=== PATIENT | female | born 1985 | race Hispanic/Latino ===

== ENCOUNTER 2022-07-02 09:40 | Emergency (ER) | payer SELFPAY ==
[2022-07-02] MEDS ORDERED: KETOROLAC 30 MG/ML INJ ONE (10:03)
[2022-07-02 10:21] LABS: Absolute Lymphocytes (CBC) 0.5 K/uL (0.7-4.9); Hematocrit 35.8 % (36.0-45.0); MCV 85.9 fL (80-100); MPV 8.4 fL (7.6-11.3); RBC Red Blood Cell Count 4.17 M/uL (3.86-4.86)
--- NOTE | 2022-07-02 10:23 | RAD REPORT ---
EXAM DESCRIPTION: CT - Head Brain Wo Cont - 07/02/2022 10:18 am CLINICAL HISTORY: HEADACHE Headache, drowsiness COMPARISON: No comparisons TECHNIQUE: All CT scans are performed using dose optimization technique as appropriate and may inclu de automated exposure control or mA/KV adjustment according to patient size. FINDINGS: No intracranial hemorrhage, hydrocephalus or extra-axial fluid collection.No areas of brai n edema or evidence of midline shift. The paranasal sinuses and mastoids are clear. The calvarium is intact. IMPRESSION: No acute intracranial abnormality.
--- NOTE | 2022-07-02 10:36 | RAD REPORT ---
EXAM DESCRIPTION: RAD - Chest Single View - 07/02/2022 10:23 am CLINICAL HISTORY: CHEST PAIN Chest pain. COMPARISON: No comparisons FINDINGS: Portable technique limits examination quality. The lungs are grossly clear. The heart is normal in size. No displaced fractures. IMPRESSION: No acute intrathoracic process suspected.
[2022-07-02 10:39] LABS: Potassium 3.6 mmol/L (3.5-5.1); Troponin High Sensitivity 3.1 pg/mL (<58.9)
--- NOTE | 2022-07-02 12:58 | RAD REPORT ---
EXAM DESCRIPTION: CT - Chest For Pe Angio - 07/02/2022 12:12 pm CLINICAL HISTORY: Chest pain. CHEST PAIN COMPARISON: No comparisons TECHNIQUE: CT angiogram of the pulmonary arteries was performed with MIP. All CT scans are performed using dose optimization technique as appropriate and may include automated exposure control or mA/KV adjustment according to patient size. FINDINGS: No evidence of pulmonary thromboembolism. No acute aortic finding demonstrated. The lungs are clear. No significant pericardial or pleural fluid. No concerning bony finding. IMPRESSION: No evidence of pulmonary thromboembolism. No acute lung findings.
[2022-07-02] MEDS ORDERED: HYDROCODONE/APAP 5/325 MG TAB ONE (13:15)
--- NOTE | 2022-07-02 13:31 | ER ---
Nurse's Notes [facility] Name: Layne Winslow Age: 37 yrs Sex: Female : 1985 Arrival Date: 07/02/2022 Time: 09:43 Bed 18 Private MD: None, None Diagnosis: Headache;Pain in thoracic spine Presentation: 07/02 09:46 Chief complaint: Patient's son or daughter states: headache woke her up in the middle iw of night, started in back of head and now its moved to the front, and her upper back started hurting last night also, when she stretches she feels like someone is hitting her back. Coronavirus screen: At this time, the client does not indicate any symptoms associated with coronavirus-19. Ebola Screen: Patient negative for fever greater than or equal to 101.5 degrees Fahrenheit, and additional compatible Ebola Virus Disease symptoms Patient denies exposure to infectious person. Patient denies travel to an Ebola-affected area in the 21 days before illness onset. No symptoms or risks identified at this time. Initial Sepsis Screen: Does the patient meet any 2 criteria? No. Patient's initial sepsis screen is negative. Does the patient have a suspected source of infection? No. Patient's initial sepsis screen is negative. Risk Assessment: Do you want to hurt yourself or someone else? Patient reports no desire to harm self or others. Onset of symptoms was July 02, 2022. 09:46 Method Of Arrival: Ambulatory iw 09:46 Acuity: HIMA 3 iw Triage Assessment: 10:14 Headache History: The patient has had previous headaches. General: Appears ap3 uncomfortable, Behavior is calm, cooperative, appropriate for age. Pain: Complains of pain in occipital area Pain radiates to left parietal area, right parietal area, left frontal area, right frontal area and right side of forehead Pain Pain began gradually, over night Is continuous, Also complains of nausea. Neuro: Level of Consciousness is awake, alert, obeys commands, Oriented to person, place, time, situation, Gait is steady, Speech is normal, Reports headache occipital area. Cardiovascular: Patient's skin is warm and dry. Respiratory: Airway is patent Respiratory effort is even, unlabored, Respiratory pattern is regular, symmetrical. 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 - Social history:: Smoking status: Patient denies any tobacco usage or history of. Screenin:11 [facility] ED Fall Risk Assessment (Adult) History of falling in the last 3 months, ap3 including since admission No falls in past 3 months (0 pts). Abuse screen: Denies threats or abuse. Nutritional screening: No deficits noted. Tuberculosis screening: No symptoms or risk factors identified. Assessment: 12:50 Reassessment: Patient and/or family updated on plan of care and expected duration. Pain ap3 level reassessed. Patient is alert, oriented x 3, equal unlabored respirations, skin warm/dry/pink. General:. Vital Signs: 09:46 BP 122 / 81; Pulse 110; Resp 16; Temp 99.7; Pulse Ox 98% on R/A; Weight 68.04 kg; iw Height 5 ft. 4 in. (162.56 cm); Pain 7/10; 10:45 BP 108 / 68; Pulse 102; Pulse Ox 99% ; ap3 11:54 Pulse 79; Pulse Ox 97% on R/A; ap3 11:54 BP 108 / 70; ap3 09:46 Body Mass Index 25.75 (68.04 kg, 162.56 cm) iw NIH Stroke Scale Scores: 09:50 NIHSS Score: 0 [facility] ED Course: 09:43 Patient arrived in ED. as 09:43 None, None is Private Physician. as 09:45 [facility] jh7 09:45 Sandor Lomas MD is Attending Physician. jh7 09:49 Triage completed. iw 09:50 Arm band placed on. iw 09:54 Kandice Macario, ANKUR is Primary Nurse. ap3 10:11 Inserted saline lock: 20 gauge in right antecubital area, using aseptic technique. ap3 Blood collected. 10:15 Patient has correct armband on for positive identification. Bed in low position. Call ap3 light in reach. Side rails up X 1. Adult w/ patient. Pulse ox on. NIBP on. Door closed. Noise minimized. 13:49 No provider procedures requiring assistance completed. IV discontinued, intact, ap3 bleeding controlled, No redness/swelling at site. Pressure dressing applied. Administered Medications: 10:11 Drug: Ketorolac 30 mg Route: IVP; Site: right antecubital; ap3 13:50 Follow up: Response: No adverse reaction; Pain is decreased ap3 13:17 Drug: HYDROcodone-acetaminophen 5 mg-325 mg 1 tabs Route: PO; ap3 13:50 Follow up: Response: No adverse reaction; Pain is decreased ap3 Medication: 10:16 VIS not applicable for this client. ap3 Outcome: 13:31 Discharge ordered by . jh7 13:49 Discharged to home ambulatory, with family. ap3 13:49 Condition: good 13:49 Discharge instructions given to patient, family, Instructed on discharge instructions, follow up and referral plans. medication usage, Demonstrated understanding of instructions, follow-up care, medications, Prescriptions given X 2. 13:54 Patient left the ED. ap3 NIH Stroke Scale - NIH Stroke Score Date: 07/02/2022 Time: 09:50 Total Score = 0 1a. Level of Consciousness (LOC) - 0(Alert) 1b. Level of Consciousness (LOC) (Month \T\ Age) - 0(Both) 1c. LOC Commands (Open \T\ Closes Eyes/Accelerator Technician) - 0(Both) 2. Best Gaze (Lateral Gaze Paresis) - 0(Normal) 3. Visual Field Loss - 0(No visual loss) 4. Facial Palsy - 0(Normal) 5a. Left Arm: Motor (10-second hold) - 0(No drift) 5b. Right Arm: Motor (10-second hold) - 0(No drift) 6a. Left Leg: Motor (5-second hold - always test supine) - 0(No drift) 6b. Right Leg: Motor (5-second hold - always test supine) - 0(No drift) 7. Limb Ataxia (finger/nose \T\ heel/henry - test with eyes open) - 0(Absent) 8. Sensory Loss (pinprick arms/legs/face) - 0(Normal) 9. Best Language: Aphasia (description/naming/reading) - 0(No aphasia) 10. Dysarthria (speech clarity - read or repeat words) - 0(Normal) 11. Extinction and Inattention (visual/tactile/auditory/spatial/personal) - 0(No abnormality) Initials: jh7 Signatures: Ceci Celeste Irene, RN RN iw Prokisch, Amanda, RN RN ap3 Chelsi Sandoval, IAN SOSA jh7
--- NOTE | 2022-07-02 13:31 | EDPHYS ---
Physician Documentation [facility] [place], [place] Name: Layne Winslow Age: 37 yrs Sex: Female : 1985 Arrival Date: 07/02/2022 Time: 09:43 Bed 18 Private MD: None, None ED Physician Sandor Lomas HPI: 07/02 09:50 This 37 yrs old Female presents to ER via Ambulatory with complaints of jh7 Headache, Back Pain. 09:50 The patient complains of pain to the occipital area. The patient describes the headache jh7 as aching, constant. Onset: The symptoms/episode began/occurred last night. Associated signs and symptoms: Pertinent positives: back pain, Pertinent negatives: altered mental status, dizziness, fever, nausea, rash, vomiting, weakness. 09:50 Headache History: Denies prior headaches. 37-year-old female awoke from sleep last jh7 night with an occipital headache and thoracic back pain. Reports no medical problems. States that the back pain radiates to her anterior chest. Also reports occasional shortness of breath for the past month. She is a patient of Dr. Perry.. 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 - Social history:: Smoking status: Patient denies any tobacco usage or history of. ROS: 09:50 Constitutional: Negative for fever, chills, and weight loss, Eyes: Negative for injury, jh7 pain, redness, and discharge, ENT: Negative for injury, pain, and discharge, Neck: Negative for injury, pain, and swelling, Abdomen/GI: Negative for abdominal pain, nausea, vomiting, diarrhea, and constipation, MS/Extremity: Negative for injury and deformity, Skin: Negative for injury, rash, and discoloration. 09:50 Cardiovascular: Positive for chest pain. 09:50 Respiratory: Positive for shortness of breath, on exertion. 09:50 Back: Positive for pain with movement, of the left mid back and right mid back. 09:50 Neuro: Positive for headache, Negative for altered mental status, dizziness, gait disturbance, loss of consciousness, speech changes, syncope, weakness. Exam: 09:50 Neuro: Orientation: is normal, to person, place, time \T\ situation. Mentation: is jh7 normal, Memory: is normal, Cranial nerves: grossly normal, Cerebellar function: is grossly normal, Motor: is normal, Sensation: is normal, Gait: is steady, at a normal pace. 09:50 Constitutional: This is a well developed, well nourished patient who is awake, alert, jh7 and in no acute distress. Head/Face: Normocephalic, atraumatic. Eyes: Pupils equal round and reactive to light, extra-ocular motions intact. Lids and lashes normal. Conjunctiva and sclera are non-icteric and not injected. Cornea within normal limits. Periorbital areas with no swelling, redness, or edema. Neck: Trachea midline, no thyromegaly or masses palpated, and no cervical lymphadenopathy. Supple, full range of motion without nuchal rigidity, or vertebral point tenderness. No Meningismus. Cardiovascular: Regular rate and rhythm with a normal S1 and S2. No gallops, murmurs, or rubs. Normal PMI, no JVD. No pulse deficits. Respiratory: Lungs have equal breath sounds bilaterally, clear to auscultation and percussion. No rales, rhonchi or wheezes noted. No increased work of breathing, no retractions or nasal flaring. Abdomen/GI: Soft, non-tender, with normal bowel sounds. No distension or tympany. No guarding or rebound. No evidence of tenderness throughout. Back: No spinal tenderness. No costovertebral tenderness. Full range of motion. Skin: Warm, dry with normal turgor. Normal color with no rashes, no lesions, and no evidence of cellulitis. MS/ Extremity: Pulses equal, no cyanosis. Neurovascular intact. Full, normal range of motion. Vital Signs: 09:46 BP 122 / 81; Pulse 110; Resp 16; Temp 99.7; Pulse Ox 98% on R/A; Weight 68.04 kg; iw Height 5 ft. 4 in. (162.56 cm); Pain 7/10; 10:45 BP 108 / 68; Pulse 102; Pulse Ox 99% ; ap3 11:54 Pulse 79; Pulse Ox 97% on R/A; ap3 11:54 BP 108 / 70; ap3 09:46 Body Mass Index 25.75 (68.04 kg, 162.56 cm) iw NIH Stroke Scale Scores: 09:50 NIHSS Score: 0 [facility] MDM: 09:45 Patient medically screened. [facility] 13:25 Differential diagnosis: cerebral vascular accident, tension headache, Muscle spasm, [facility] acute AL, pulmonary embolism, aortic dissection. Data reviewed: vital signs, nurses notes, lab test result(s), EKG, radiologic studies, CT scan, plain films. I considered the following discharge prescriptions or medication management in the emergency department Medications were administered in the Emergency Department. See MAR. Historians other than the Patient: Daughter/Son: daughter. Counseling: I had a detailed discussion with the patient and/or guardian regarding: the historical points, exam findings, and any diagnostic results supporting the discharge/admit diagnosis, to return to the emergency department if symptoms worsen or persist or if there are any questions or concerns that arise at home. Response to treatment: the patient's symptoms have markedly improved after treatment. 07/02 09:54 Order name: Basic Metabolic Panel [facility] 07/02 09:54 Order name: CBC with Diff [facility] 07/02 09:54 Order name: D-Dimer [facility] 07/02 09:54 Order name: Troponin HS [facility] 07/02 10:37 Order name: CBC with Automated Diff; Complete Time: 10:44 EDMS 07/02 10:39 Order name: Basic Metabolic Panel; Complete Time: 10:44 EDMS 07/02 09:54 Order name: XRAY Chest (1 view) [facility] 07/02 09:54 Order name: CT Head Brain wo Cont [facility] 07/02 10:23 Order name: CT; Complete Time: 10:34 EDMS 07/02 10:37 Order name: RAD; Complete Time: 10:44 EDMS 07/02 10:39 Order name: Troponin High Sensitivity; Complete Time: 10:44 EDMS 07/02 10:49 Order name: CT Chest For PE Angio [facility] 07/02 10:49 Order name: D-Dimer; Complete Time: 10:49 EDUT 07/02 12:59 Order name: CT; Complete Time: 13:16 EDUT 07/02 09:54 Order name: EKG; Complete Time: 09:54 [facility] 02/13 09:54 Order name: Cardiac monitoring; Complete Time: 10:07 [facility] 07/02 09:54 Order name: EKG - Nurse/Tech; Complete Time: 11:01 [facility] 07/02 09:54 Order name: IV Saline Lock; Complete Time: 10:10 [facility] 07/02 09:54 Order name: Labs collected and sent; Complete Time: 10: [facility] 07/02 09:54 Order name: O2 Per Protocol; Complete Time: 10: [facility] 07/02 09:54 Order name: O2 Sat Monitoring; Complete Time: 10: EC:56 Rate is 95 beats/min. Rhythm is regular. QRS [place] is Normal. ME interval is normal at [facility] 144 msec. QRS interval is normal at 78 msec. QT interval is normal at 336 msec. No Q waves. T waves are Normal. No ST changes noted. Clinical impression: Normal ECG. Administered Medications: 10:11 Drug: Ketorolac 30 mg Route: IVP; Site: right antecubital; ap3 13:50 Follow up: Response: No adverse reaction; Pain is decreased ap3 13:17 Drug: HYDROcodone-acetaminophen 5 mg-325 mg 1 tabs Route: PO; ap3 13:50 Follow up: Response: No adverse reaction; Pain is decreased ap3 Disposition: 18:55 Co-signature as Attending Physician, Sandor Lomas MD I reviewed the patient's care rn provided by the Advanced Practice Provider and agree with the diagnosis and treatment plan. Disposition Summary: 07/02/22 13:31 Discharge Ordered Location: Home [facility] Problem: new [facility] Symptoms: have improved [facility] Condition: Stable [facility] Diagnosis - Headache [facility] - Pain in thoracic spine [facility] Followup: [facility] - With: Private Physician - When: 2 - 3 days - Reason: Recheck today's complaints Discharge Instructions: - Discharge Summary Sheet [facility] - General Headache Without Cause jh - Musculoskeletal Pain [facility] Forms: - Medication Reconciliation Form 7 - Thank You Letter [facility] Prescriptions: - Naprosyn 500 mg Oral Tablet - take 1 tablet by ORAL route 2 times per day take with food; 30 tablet; Refills: [facility] 0, Product Selection Permitted - Zanaflex 4 mg Oral Tablet - take 1 tablet by ORAL route every 8 hours As needed; 20 tablet; Refills: 0, jh7 Product Selection Permitted NIH Stroke Scale - NIH Stroke Score Date: 07/02/2022 Time: 09:50 Total Score = 0 1a. Level of Consciousness (LOC) - 0(Alert) 1b. Level of Consciousness (LOC) (Month \T\ Age) - 0(Both) 1c. LOC Commands (Open \T\ Closes Eyes/Vamp Stitcher) - 0(Both) 2. Best Gaze (Lateral Gaze Paresis) - 0(Normal) 3. Visual Field Loss - 0(No visual loss) 4. Facial Palsy - 0(Normal) 5a. Left Arm: Motor (10-second hold) - 0(No drift) 5b. Right Arm: Motor (10-second hold) - 0(No drift) 6a. Left Leg: Motor (5-second hold - always test supine) - 0(No drift) 6b. Right Leg: Motor (5-second hold - always test supine) - 0(No drift) 7. Limb Ataxia (finger/nose \T\ heel/henry - test with eyes open) - 0(Absent) 8. Sensory Loss (pinprick arms/legs/face) - 0(Normal) 9. Best Language: Aphasia (description/naming/reading) - 0(No aphasia) 10. Dysarthria (speech clarity - read or repeat words) - 0(Normal) 11. Extinction and Inattention (visual/tactile/auditory/spatial/personal) - 0(No abnormality) Initials: [facility] Signatures: Dispatcher [employer] EDSocorro Bernstein, Sandor Briggs RN, MD MD rn Prokisch, Amanda, RN RN ap3 Chelsi Sandoval, PLYCOR OPERATOR PLYCOR OPERATOR [facility] Corrections: (The following items were deleted from the chart) 10:40 09:50 Associated signs and symptoms: Pertinent positives: back pain, Pertinent 7 negatives: altered mental status, dizziness, fever, nausea, rash, vomiting, weakness, 7 10:46 09:50 Neuro: Orientation: is normal, to person, place, time \T\ situation. [facility] Mentation: is normal, Memory: is normal, Cranial nerves: grossly normal, Cerebellar function: is grossly normal, [facility]
[2022-07-02 14:12] VITALS: TEMP 99.7
[2022-07-02 14:15] VITALS: BP 108/70; O2SAT 97
--- NOTE | 2022-07-03 17:15 | EKG ---
Test Date: 2022-07-02 Test Time: 10:56:17 Supply Aide: YEISON MEASUREMENT RESULTS: Intervals: Rate: 95 SD: 144 QRSD: 78 QT: 336 QTc: 422 [place]: P: 34 SD: 144 QRS: -10 T: 22 INTERPRETIVE STATEMENTS: Normal sinus rhythm Normal ECG No previous ECG available for comparison Electronically Signed On 07-03-22 17:10:14 STATION MECHANIC HELPER by Soto Macario
== END 2022-07-02 13:54 | disposition home or self-care (01) ==
LOC: ER 09:40
DX: R51.9 Headache, unspecified (principal); M54.6 Pain in thoracic spine
CPT/HCPCS: 36415; 70450; 71045; 71275; 80048; 84484; 85025; 85379; 93005; 96374; 99284; Q9967